=== PATIENT | male | born 1970 | race Caucasian/White ===

== ENCOUNTER 2018-04-26 11:57 | Emergency (ER) | payer BC ==
[~2018-04-26] VITALS: Ht 175.3 cm; Wt 86.2 kg
[2018-04-26 13:01] LABS: HEMATOCRIT 49.1 % (42.0-52.0); HEMOGLOBIN 16.9 gm/dL (14.0-18.0); MCH 30.9 pg (26.0-34.0); MCHC 34.3 g/dL (28.0-37.0); RBC 5.45 mil/uL (4.50-6.00)
[2018-04-26 13:14] LABS: CALCIUM 9.9 mg/dL (8.5-10.1); CREATININE 1.2 mg/dL (0.7-1.3); POTASSIUM 3.6 mmol/L (3.5-5.1)
[2018-04-26 13:19] LABS: ALBUMIN 4.1 g/dL (3.4-5.0); TOTAL PROTEIN 7.5 g/dL (6.4-8.2)
[2018-04-26 13:34] VITALS: BP 126/92
== END 2018-04-26 18:20 | disposition home or self-care (01) ==
LOC: ER 11:57
PROVIDERS: Emergency Medicine
DX: R20.2 Paresthesia of skin (principal); Z88.0 Allergy status to penicillin